=== PATIENT | male | born 1960 | race Caucasian/White ===

== ENCOUNTER 2024-01-04 17:05 | Emergency (ER) | payer BC ==
[~2024-01-04] VITALS: Ht 182.9 cm; Wt 77.1 kg
[2024-01-04 17:16] VITALS: BP_SYST 154; PULSE 76; RESP 18; TEMP 98.3; O2SAT 97
[2024-01-04] MEDS ORDERED: LORA-258 PO (18:50)
[2024-01-04 19:05] VITALS: BP_SYST 145; PULSE 78; RESP 18; TEMP 98.1; O2SAT 98
== END 2024-01-04 19:05 | disposition home or self-care (01) ==
LOC: SED 17:05
DX: F41.9 Anxiety disorder, unspecified (principal); F32.A Depression, unspecified; F12.90 Cannabis use, unspecified, uncomplicated; Z79.899 Other long term (current) drug therapy
CPT/HCPCS: 93005; 99283